=== PATIENT | female | born 1970 | race Caucasian/White ===

== ENCOUNTER → 2018-12-15 | Outpatient (CLI) | payer BC ==
[2018-12-15 10:08] VITALS: BP 153/88; PULSE 72; RESP 18; TEMP 98.1; BMI 30.7
--- NOTE | 2018-12-15 10:54 | P.GSHP ---
History of Present Illness H&P Date: 12/15/18 Chief Complaint: abnormal mammogram Kalina is a 48-year-old white female who presents for breast evaluation. She had a bilateral screening mammogram performed on 96. This revealed some architectural distortion in the left breast for which she was recommended additional views be obtained. The patient has had a left breast ultrasound- guided core biopsy in the past which was negative for malignancy. She had diagnostic left breast mammogram which revealed dense parenchyma. Under compression there still appeared to be persistent distortion in the upper outer aspect of the left breast. This was not as clearly identified on the ML view. This was posterior to prior breast biopsy. An ultrasound was then performed an ultrasound did not reveal any solid or cystic areas of concern. The patient herself does not feel any dominant masses or nodules of concern in e ither breast. The patient denies any trauma to her breast. The patient denies any recent infections in the breast. The patient has not had any skin changes or nipple discharge of concern. Patients drinks coffee occasionally, smoke: none, second hand smoke: no, chocolate: occasional Family history: none Hormonal History: menarche: 13 , breast fed: yes, first born at 23 menopause: irregular periods BCP: none hormones: none History: Negative Surgical history: left ankel Social History: smoke: none, stopped 15 years ago alcohol: none drugs: none - Constitutional Comment: hot flashes - EENT Eyes: denies blurred vision, denies pain Ears: deny: decreased hearing, tinnitus Ears, nose, mouth and throat: Denies headache, Denies sore throat - Breasts Breasts: bilateral: as per HPI - Cardiovascular Cardiovascular: Denies chest pain, Denies shortness of breath - Respiratory Respiratory: Denies cough, Denies 7 - Genitourinary (Female) Genitourinary: Denies dysuria, Denies hematuria - Menstruation Menstruation: Reports premenarcheal - Musculoskeletal Musculoskeletal: Denies myalgias - Integumentary Integumentary: Denies pruritus, Denies rash - Neurological Neurological: Denies numbness, Denies weakness - Psychiatric Psychiatric: Denies anxiety, Denies depression - Endocrine Endocrine: Denies fatigue, Denies weight change - Hematologic/Lymphatic Comment: none - Allergic/Immunologic Allergic/Immunologic: Reports seasonal allergies Past Medical History History of Any Multi-Drug Resistant Organisms: None Reported Smoking Status: Former smoker Medications and Allergies Home Medications Medication Instructions Recorded Confirmed Type No Known Home Medications 12/15/18 12/15/18 History Allergies Allergy/AdvReac Type Severity Reaction Status Date / Time No Known Allergies Allergy Unverified 12/15/18 10:04 Surgical - Exam Vital Signs Temp Pulse Resp BP Pulse Ox 98.1 F 72 18 153/88 98 12/15/18 10:05 12/15/18 10:05 12/15/18 10:05 12/15/18 10:05 12/15/18 10:05 BMI 30.7 - General well developed, well nourished, no distress - Eyes normal ocular movement - ENT no hearing loss, no congestion - Neck no masses, trachea midline, no lymphadectomy - Respiratory normal expansion, normal respiratory effort, clear to auscultation - Cardiovascular Rhythm: regular Heart Sounds: normal: S1, S2 - Abdomen Abdomen: soft, non tender, no guarding, no rigid, no rebound - Integumentary normal turgor - Neurologic no disoriented, no combative - Musculoskeletal normal gait, normal posture - Psychiatric oriented to time, oriented to person, oriented to place, speech is normal, memory intact Breast examination: Bra 36 C/D wears sports bra's ptosis Grade2 Right breast: Multiple positional exam no dominant masses or nodules of concern Right axilla: No adenopathy of concern Left breast: Multiple positional exam no dominant masses or nodules of concern Left axilla: No adenopathy of concern Results Mammogram and ultrasound results reviewed Assessment and Plan Assessment: Fashion: 1. Fibrocystic breast changes 2. Abnormal mammogram 3. Asymmetric density left breast seen only on one view necessitating rangel- synthesis 3-D stereo biopsy 4. Ultrasound no abnormalities noted 5. rolanda-menopausal Plan: 1. Rangel-synthesis directed 3-D stereotactic core biopsy 2. Follow-up after biopsy Risks and benefits of procedure discussed with the patient. She understands and this will be scheduled in the near future. Time 40 minutes CC: Dr. luz, Dr. Hoang
== END ==
LOC: WWCWWP 09:25
PROVIDERS: ATTEND Surgery
DX: Z53.9 Procedure and treatment not carried out, unspecified reason (principal)

== ENCOUNTER → 2019-07-03 | Outpatient (CLI) | payer BC ==
--- NOTE | 2019-07-03 08:27 | MM ---
Reason for exam: follow-up at short interval from prior study. Last mammogram was performed 8 months ago. History: Patient is postmenopausal. Benign stereotactic core biopsy of the left breast, 2019. Benign ultrasound-guided core biopsy of the left breast, 2017. Physical Findings: Nurse did not find any significant physical abnormalities on exam. MG 3D Diag Mammo W/Cad LT CC and MLO view(s) were taken of the left breast. Prior study comparison: October 20, 2018, left breast mammogram, performed at [facility]. October 13, 2018, bilateral mammogram, performed at [facility]. June 16, 2016, bilateral mammogram, performed at [facility]. March 27, 2015, left breast mammogram, performed at [facility]. March 21, 2015, left breast mammogram, performed at [facility]. March 13, 2015, bilateral mammogram, performed at [facility]. No significant new findings when compared with previous films. These results were verbally communicated with the patient and result sheet given to the patient on 07/03/19. ASSESSMENT: Benign, BI-RAD 2 RECOMMENDATION: Routine screening mammogram of both breasts in 4 months. Back on schedule for October 2019.
== END | disposition home or self-care (01) ==
LOC: RADMAMWWP 07:25
PROVIDERS: ATTEND Surgery
DX: Z12.31 Encounter for screening mammogram for malignant neoplasm of breast (principal); R92.8 Other abnormal and inconclusive findings on diagnostic imaging of breast
CPT/HCPCS: 77061; 77065

== ENCOUNTER → 2019-07-06 | Outpatient (CLI) | payer BC ==
[2019-07-06 15:42] VITALS: BP 132/82; PULSE 76; RESP 18; TEMP 98.5
--- NOTE | 2019-07-06 16:27 | P.PN ---
Subjective Progress Note Date: 07/06/19 Principal diagnosis: fibrocystic disease of the left breast Kalina is a 49-year-old white female who comes for breast evaluation. She had had a screening mammogram performed on . This revealed some architectural distortion in the left breast for which additional views were recommended. She had stereotactic core biopsy which was negative for malignancy on [id number]. She has no complaints at this time. She had a repeat left breast mammogram performed on . This was benign BIRADS 2 and repeat bilateral mammogram in 4 months time October 2019 is recommended. Family history: none Hormonal History: menarche: 13 , breast fed: yes, first born at 23 menopause: irregular periods BCP: none hormones: none History: Negative Surgical history: left sandeep Social History: smoke: none, stopped 15 years ago alcohol: none drugs: none - Constitutional Comment: hot flashes - EENT Eyes: denies blurred vision, denies pain Ears: deny: decreased hearing, tinnitus Ears, nose, mouth and throat: Denies headache, Denies sore throat - Breasts Breasts: bilateral: as per HPI - Cardiovascular Cardiovascular: Denies chest pain, Denies shortness of breath - Respiratory Respiratory: Denies cough, Denies 7 - Genitourinary (Female) Genitourinary: Denies dysuria, Denies hematuria - Menstruation Menstruation: Reports premenarcheal - Musculoskeletal Musculoskeletal: Denies myalgias - Integumentary Integumentary: Denies pruritus, Denies rash - Neurological Neurological: Denies numbness, Denies weakness - Psychiatric Psychiatric: Denies anxiety, Denies depression - Endocrine Endocrine: Denies fatigue, Denies weight change - Hematologic/Lymphatic Comment: none - Allergic/Immunologic Allergic/Immunologic: Reports seasonal allergies Past Medical History History of Any Multi-Drug Resistant Organisms: None Reported Smoking Status: Former smoker Medications and Allergies Home Medications Medication Instructions Recorded Confirmed Type No Known Home Medications 12/15/18 12/15/18 History Allergies Allergy/AdvReac Type Severity Reaction Status Date / Time No Known Allergies Allergy Unverified 12/15/18 10:04 Objective - Vital Signs Vital signs: Vital Signs Temp 98.5 F 07/06/19 15:38 Pulse 76 07/06/19 15:38 Resp 18 07/06/19 15:38 BP 132/82 07/06/19 15:38 Pulse Ox 97 07/06/19 15:38 Intake & Output 07/05/19 07/06/19 07/06/19 18:59 06:59 18:59 Weight 90.718 kg - Exam BMI 32.3 - Constitutional General appearance: Present: average body habitus - EENT Eyes: Present: EOMI ENT: Present: hearing grossly normal - Respiratory Respiratory: bilateral: CTA - Cardiovascular Rhythm: regular Heart sounds: normal: S1, S2 - Integumentary Integumentary: Present: normal turgor - Musculoskeletal Musculoskeletal: Present: gait normal - Psychiatric Psychiatric: Present: A&O x's 3, appropriate affect - Additional findings Additional findings: left breast: inspection: skin changes of concern Palpation: Left breast multiple positional exam fibrocystic changes no discrete dominant masses or nodules of concern Left axilla: No adenopathy of concern Assessment and Plan Assessment: Impression/Plan: 1. Fibrocystic breast changes 2. Repeat bilateral mammogram in 4 months time 3. Follow up sooner if any questions of concern CC: Dr. Radha Baum encounter 10 minutes, > 50% of time in planning and counselling Time with Patient: Less than 30
== END | disposition home or self-care (01) ==
LOC: WWCWWP 15:31
PROVIDERS: ATTEND Surgery
DX: Z53.9 Procedure and treatment not carried out, unspecified reason (principal)

== ENCOUNTER → 2019-11-23 | Outpatient (CLI) | payer BC ==
[2019-11-23 13:01] VITALS: BP 129/85; PULSE 56; RESP 16; TEMP 98.8
--- NOTE | 2019-11-23 13:22 | P.PN ---
Subjective Progress Note Date: 11/23/19 Principal diagnosis: fibrocystic breast disease fibrocystic disease of the left breast Kalina is a 49-year-old white female who comes for breast evaluation. She had had a screening mammogram performed on . This revealed some architectural distortion in the left breast for which additional views were recommended. She had stereotactic core biopsy which was negative for malignancy on [id number]. She has no complaints at this time. She had a repeat left breast mammogram performed on . This was benign BIRADS 2 and repeat bilateral mammogram in 4 months time October 2019 is recommended. She had a bilateral mammogram on 10-05-19 which was benign BIRAD 2. Patient does not feel any lumps masses or nodules in either breast which she is concerned about. She is not complaining of any nipple discharge or pain in the breast. She has no history of any recent trauma or infection in the breast. Family history: none Hormonal History: menarche: 13 , breast fed: yes, first born at 23 menopause: irregular periods BCP: none hormones: none Medical History: Negative Surgical history: left ankle Social History: smoke: none, stopped 15 years ago alcohol: none drugs: none - Constitutional Comment: hot flashes - EENT Eyes: denies blurred vision, denies pain Ears: deny: decreased hearing, tinnitus Ears, nose, mouth and throat: Denies headache, Denies sore throat - Breasts Breasts: bilateral: as per HPI - Cardiovascular Cardiovascular: Denies chest pain, Denies shortness of breath - Respiratory Respiratory: Denies cough, Denies 7 - Genitourinary (Female) Genitourinary: Denies dysuria, Denies hematuria - Menstruation Menstruation: Reports premenarcheal - Musculoskeletal Musculoskeletal: Denies myalgias - Integumentary Integumentary: Denies pruritus, Denies rash - Neurological Neurological: Denies numbness, Denies weakness - Psychiatric Psychiatric: Denies anxiety, Denies depression - Endocrine Endocrine: Denies fatigue, Denies weight change - Hematologic/Lymphatic Comment: none - Allergic/Immunologic Allergic/Immunologic: Reports seasonal allergies Objective - Vital Signs Vital signs: Vital Signs Temp 98.8 F 11/23/19 12:56 Pulse 56 L 11/23/19 12:56 Resp 16 11/23/19 12:56 BP 129/85 11/23/19 12:56 Pulse Ox 97 11/23/19 12:56 Intake & Output 11/22/19 11/23/19 11/23/19 18:59 06:59 18:59 Weight 86.183 kg - Exam BMI 30.7 - Constitutional General appearance: Present: average body habitus - EENT Eyes: Present: EOMI ENT: Present: hearing grossly normal - Respiratory Respiratory: bilateral: CTA - Cardiovascular Rhythm: regular Heart sounds: normal: S1, S2 - Gastrointestinal General gastrointestinal: Present: soft - Integumentary Integumentary: Present: normal turgor - Musculoskeletal Musculoskeletal: Present: gait normal - Psychiatric Psychiatric: Present: A&O x's 3, appropriate affect, intact judgment & insight - Additional findings Additional findings: breast exam: BRA: sports bra's inspection: Bilateral grade 2 ptosis Palpation: Right breast: Fibrocystic changes no dominant masses or nodules of concern Right axilla: No adenopathy of concern Left breast: Multiple positional exam no dominant masses or nodules of concern, fibrocystic changes Left axilla: No adenopathy of concern Assessment and Plan Assessment: Impression: 1. Fibrocystic breast changes 2. Status post stereotactic core biopsy of the left breast which was benign Plan: 1. Repeat bilateral mammogram in 1 year with physician exam 2. Patient is going to follow with primary care doctor she has any questions or concerns she will follow here Cc: Dr. Baum encounter 15 minutes, > 50% of time in planning and counselling
== END | disposition home or self-care (01) ==
LOC: WWCWWP 12:31
PROVIDERS: ATTEND Surgery
DX: Z53.9 Procedure and treatment not carried out, unspecified reason (principal)